=== PATIENT | female | born 1990 | race Caucasian/White ===

== ENCOUNTER 2016-11-01 01:22 | Emergency (ER) | payer OTHER ==
[2016-11-01] MEDS ORDERED: Ketorolac Tromethamine 30 MG/ML VIAL ONE (01:55)
[2016-11-01] MEDS ORDERED: Lidocaine Viscous Sol 2% 15 ml UD Cup ONE (01:55)
[2016-11-01] MEDS ORDERED: Mag-Al Plus 1200 MG/1200 MG/120 MG/30 ML UDCUP ONE (01:55)
[2016-11-01 02:26] LABS: #Basophils 0.1 thou/uL (0.0-0.2); #Eosinphils 0.2 thou/uL (0.0-0.7); #Lymphocytes 2.8 thou/uL (1.20-3.40); #Neutrophils 3.7 thou/uL (1.40-6.50); %Basophils 1.6 % (0.0-1.0); %Eosinophils 2.9 % (0.0-10.0); %Lymphocytes 35.8 % (21.0-51.0); %Monocytes 12.7 % (0.0-10.0); Hematocrit 38.8 % (36.0-47.0); Red Blood Cell (RBC) Count 4.58 mill/uL (4.20-5.40); White Blood Cell (WBC) Count 7.9 thou/uL (4.8-10.8)
[2016-11-01 02:43] LABS: ALT (SGPT) 10 U/L (8-55); AST (SGOT) 18 U/L (5-34); Alkaline Phosphatase 41 U/L (40-150); Anion Gap 15 mmol/L (10-20); BUN (Urea Nitrogen) 9 mg/dL (7.0-18.7); Bilirubin, Total 0.3 mg/dL (0.2-1.2); CK (CPK) 175 U/L (29-168); Calc. Creatinine Clearance 0 mL/min (70-130); Calcium 9.3 mg/dL (7.8-10.44); Carbon Dioxide 23 mmol/L (22-29); Chloride 109 mmol/L (98-107); Estimated GFR-MDRD Greater than 90; Globulin 2.9 g/dL (2.4-3.5); Lipase 24 U/L (8-78); Protein, Total 6.7 g/dL (6.0-8.3)
[2016-11-01 02:44] LABS: Troponin I Less than 0.010 ng/mL (< 0.028)
--- NOTE | 2016-11-01 08:32 | RAD ---
TWO VIEWS CHEST: HISTORY: Chest pain since last night. FINDINGS: PA and lateral views of the chest are obtained. The lungs are well aerated. No evidence of active intrathoracic disease is seen. No evidence of ef fusions, pneumonia, or pneumothorax is seen. IMPRESSION: Unremarkable two views chest. POS: [facility]
== END 2016-11-01 03:02 | disposition home or self-care (01) ==
LOC: SCSER 01:22
DX: R07.9 Chest pain, unspecified (principal)
CPT/HCPCS: 71020; 80053; 82550; 82553; 83690; 84484; 84703; 85025; 85379; 93005; J1885

== ENCOUNTER 2017-12-07 16:04 | Outpatient (CLI) | payer OTHER ==
--- NOTE | 2017-12-07 16:32 | RAD ---
LUMBAR SPINE FIVE VIEWS: HISTORY: Low back pain. FINDINGS: No fracture, subluxation, bony destruction, spondylolysis, or spondylolisthesis is seen. POS: [facility]
== END 2017-12-07 16:05 | disposition home or self-care (01) ==
LOC: SCSRAD 16:04
PROVIDERS: ATTEND Chiropractor
DX: M54.5 Low back pain (principal)
CPT/HCPCS: 72110

== ENCOUNTER 2017-12-23 10:43 | Outpatient (CLI) | payer OTHER ==
--- NOTE | 2017-12-23 13:04 | MRI ---
MRI LUMBAR SPINE: Date: 12-23-17 Comparison: None. History: Bilateral hip pain with right inguinal pain for one week. Technique: Multiplanar, multisequence MR imaging of the lumbar spine provided without contrast. FINDINGS: The sagittal STIR imaging demonstrates no focal area of osseous marrow edema. On the basis of 5 lumbar type vertebral bodies, the conus medullaris terminates in the T12 region. Th ere is no anterolisthesis of retrolisthesis noted. T12-L1: Intervertebral disc height and signal intensity within normal limits. No significant central canal or neural foraminal stenosis. L1-2: Intervertebral disc height and signal intensity within normal limits. No significant central ca nal or neural foraminal stenosis. L2-3: Intervertebral disc height and signal intensity within normal limits. No significant central ca nal or neural foraminal stenosis. L3-4: Intervertebral disc height and signal intensity within normal limits. No significant central ca nal or neural foraminal stenosis. L4-5: There is disc space narrowing, disc desiccation, and mild disc bulge. There is a small central disc protrusion. No associated central canal stenosis or neural foraminal stenosis. L5-S1: There is disc space narrowing and disc desiccation with disc bulge. There is a superimposed le ft paracentral disc herniation which abuts the ventral aspect of the left S1 nerve root. Mild associa ion central canal/left lateral recess stenosis. No significant neural foraminal stenosis noted. Imaged retroperitoneal structures appear unremarkable. IMPRESSION: There is degenerative disc disease noted at the L4-5 and L5-S1 levels as detailed above. POS: [facility]
== END 2017-12-23 10:44 | disposition home or self-care (01) ==
LOC: TBSIIMAG 10:43
PROVIDERS: ATTEND Physical Medicine & Rehabilitation
DX: M54.5 Low back pain (principal); M79.661 Pain in right lower leg; M51.36 Other intervertebral disc degeneration, lumbar region; M51.37 Other intervertebral disc degeneration, lumbosacral region
CPT/HCPCS: 72148